=== PATIENT | female | born 1965 | race African-American/Black ===

== ENCOUNTER 2019-07-26 16:41 | Emergency (ER) | payer BC ==
[~2019-07-26] VITALS: Ht 167.6 cm; Wt 78.0 kg
[2019-07-26] MEDS ORDERED: Metoclopramide 10mg/2ml Inj IVP ONE (16:45)
[2019-07-26] MEDS ORDERED: DiphenhydrAMINE 50mg/ml Inj IVP ONE (16:45)
[2019-07-26] MEDS ORDERED: LORazepam Inj 2mg/ml 1ml IV ONE (16:45)
--- NOTE | 2019-07-26 16:45 | NUR ---
ED Nurse Note: Pt was brought in by ambulance from home d/t vertigo spells for 3-4 days. Pt is AOx4, calm and cooperative noted with generalized body weakness. Per EMS pt was recently diagnosed with Vertigo 6-7 months ago. Pt also noted with (+) vomiting. Placed on bed, safety measures in placed. VSS, on RA, afebrile on triage. Will continue to monitor.
--- NOTE | 2019-07-26 16:46 | Emergency Room Report ---
History of Present Illness General Chief Complaint: Dizziness Source: Patient Present Illness HPI Patient presents with 3 days of vertigo. It is worsened today and she has vomiting. She denies any headache. She has had this problem before but has no medication at this time. The patient denies any headache at this time. She also denies neck stiffness, ringing in the ears or change in her hearing. She is vomiting liquids at this time and having difficulty keeping them down. She feels weak and dehydrated. She denies abdominal pain. No fevers, chills, sore throat, chest pain, palpitations, diarrhea, dysuria, abdominal pain, shortness of breath, joint pain, rashes, depression, anxiety. Denies DM, HTN or fam hx of aneurisms. Allergies: Coded Allergies: No Known Allergies (Unverified , 07/26/19) COVID-19 Screening Contact w/high risk pt: No Recent Travel to affected area: No Experienced COVID-19 symptoms?: No COVID-19 Testing performed GAS STATION SUPERVISOR: No Patient History Past Medical History: see triage record Social History: Denies: smoking Social History Narrative lives with her Last Menstrual Period: na Reviewed Nursing Documentation: PMH: Agreed; PSxH: Agreed Nursing Documentation-PMH Past Medical History: No Stated History Review of Systems All Other Systems: negative except mentioned in HPI Physical Exam Vital Signs Date Time Temp Pulse Resp B/P (MAP) Pulse Ox O2 Delivery O2 Flow Rate FiO2 07/26/19 16:39 97.9 78 18 143/98 (113) 98 Room Air Sp02 EP Interpretation: reviewed, normal General Appearance: well appearing, no apparent distress, GCS 15 - but keeps eyes closed due to dizziness (opens spontaneously), non-toxic Head: normocephalic, atraumatic Eyes: bilateral eye PERRL, bilateral eye abnormal EOM - nystagmus with slow right and fast left ENT: TMs + canals normal, moist mucus membranes Neck: full range of motion, supple, supple/symm/no masses Respiratory: lungs clear, normal breath sounds Cardiovascular #1: regular rate, rhythm Cardiovascular #2: 2+ radial (R) Gastrointestinal: normal inspection, normal bowel sounds, non tender, no mass, non-distended Musculoskeletal: back normal, normal range of motion Neurologic: alert, motor strength/tone normal, DTRs symmetric, oriented x3, sensory intact, nystagmus, other - ataxia Psychiatric: depressed affect Skin: no rash, warm/dry Medical Decision Making Diagnostic Impression: Primary Impression: Nystagmus Additional Impressions: Sinusitis Qualified Codes: J32.3 - Chronic sphenoidal sinusitis Nausea and vomiting Qualified Codes: R11.2 - Nausea with vomiting, unspecified ER Course Patient with history of vertigo presents with increased vertigo and vomiting. Differential includes labyrinthitis, Mnire's disease, vestibular neuritis amongst others. Evaluation with labs EKG and chest x-ray. Patient placed on assistant corporate controller. Patient treated with metoclopramide, Benadryl and Ativan. Labs unremarkable. Patient still with significant nystagmus. Due to this CT will be ordered of the head as she states that has been done in the past. She does feel somewhat better. Try oral fluids at this time. Given Zofran and Antivert. Patient unable to ambulate with continued nystagmus. Tolerating oral intake. CT neg, but concern for subacute process. Admit telemetry. Discussed with Dr. Vaughn. Patient stable for transfer to [facility]. Aspirin given for possible cerebellar ischemia. Laboratory Tests Test 07/26/19 16:45 07/26/19 17:05 White Blood Count 14.5 K/UL (4.8-10.8) H Red Blood Count 4.61 M/UL (4.20-5.40) Hemoglobin 13.8 G/DL (12.0-16.0) Hematocrit 42.7 % (37.0-47.0) Mean Corpuscular Volume 93 FL (80-99) Mean Corpuscular Hemoglobin 29.9 PG (27.0-31.0) Mean Corpuscular Hemoglobin Concent 32.3 G/DL (32.0-36.0) Red Cell Distribution Width 12.1 % (11.6-14.8) Platelet Count 200 K/UL (150-450) Mean Platelet Volume 8.2 FL (6.5-10.1) Neutrophils (%) (Auto) 91.6 % (45.0-75.0) H Lymphocytes (%) (Auto) 4.6 % (20.0-45.0) L Monocytes (%) (Auto) 3.2 % (1.0-10.0) Eosinophils (%) (Auto) 0.0 % (0.0-3.0) Basophils (%) (Auto) 0.6 % (0.0-2.0) Sodium Level 139 MMOL/L (136-145) Potassium Level 3.9 MMOL/L (3.5-5.1) Chloride Level 102 MMOL/L (98-107) Carbon Dioxide Level 24 MMOL/L (21-32) Anion Gap 13 mmol/L (5-15) Blood Urea Nitrogen 16 mg/dL (7-18) Creatinine 0.9 MG/DL (0.55-1.30) Estimated Glomerular Filtration Rate > 60 mL/min (>60) Glucose Level 148 MG/DL (74-106) H Calcium Level 9.5 MG/DL (8.5-10.1) Total Bilirubin 0.4 MG/DL (0.2-1.0) Aspartate Amino Transferase (AST) 17 U/L (15-37) Alanine Aminotransferase (ALT) 21 U/L (12-78) Alkaline Phosphatase 118 U/L (46-116) H Total Protein 8.1 G/DL (6.4-8.2) Albumin 4.1 G/DL (3.4-5.0) Globulin 4.0 g/dL Albumin/Globulin Ratio 1.0 (1.0-2.7) Urine Color Yellow Urine Appearance Slightly cloudy Urine pH 7 (4.5-8.0) Urine Specific [place] 1.015 (1.005-1.035) Urine Protein 2+ (NEGATIVE) H Urine Glucose (UA) Negative (NEGATIVE) Urine Ketones 1+ (NEGATIVE) H Urine Blood 2+ (NEGATIVE) H Urine Nitrite Negative (NEGATIVE) Urine Bilirubin Negative (NEGATIVE) Urine Urobilinogen Normal MG/DL (0.0-1.0) Urine Leukocyte Esterase Negative (NEGATIVE) Urine RBC 2-4 /HPF (0 - 2) H Urine WBC 5-10 /HPF (0 - 2) H Urine Squamous Epithelial Cells Moderate /LPF (NONE/OCC) H Urine Amorphous Sediment Moderate /LPF (NONE) H Urine Bacteria Moderate /HPF (NONE) H EKG Diagnostic Results Rate: normal Rhythm: NSR ST Segments: no acute changes Rhythm Strip Diag. Results EP Interpretation: yes Rhythm: NSR, no PVC's, no ectopy Chest X-Ray Diagnostic Results Chest X-Ray Diagnostic Results : Chest X-Ray Ordered: Yes # of Views/Limited/Complete: 1 View Indication: Other EP Interpretation: Yes Interpretation: no consolidation, no effusion, no pneumothorax Impression: No acute disease Electronically Signed by: Electronically signed by Suresh Santo MD CT/MRI/US Diagnostic Results CT/MRI/US Diagnostic Results : Imaging Test Ordered: head Impression IMPRESSION: 1. No acute intracranial abnormality. 2. Very mild left sphenoid sinus disease. Last Vital Signs Date Time Temp Pulse Resp B/P (MAP) Pulse Ox O2 Delivery O2 Flow Rate FiO2 07/27/19 01:00 98.6 76 15 140/87 100 Room Air Status: improved Disposition: SHORT-TERM HOSP Condition: Serious Suresh Santo MD Jul 26, 2019 16:46
[2019-07-26 17:02] LABS: HEMATOCRIT 42.7 % (37.0-47.0); HEMOGLOBIN 13.8 G/DL (12.0-16.0); MEAN CORPUSCULAR VOLUME 93 FL (80-99); PLATELET COUNT 200 K/UL (150-450); RED BLOOD COUNT 4.61 M/UL (4.20-5.40); RED CELL DISTRIBUTION WIDTH 12.1 % (11.6-14.8); WHITE BLOOD COUNT 14.5 K/UL (4.8-10.8)
--- NOTE | 2019-07-26 17:05 | NUR ---
ED Nurse Note: urine collected, sent to labs.
[2019-07-26 17:06] LABS: BASOPHILS % (AUTO) 0.6 % (0.0-2.0); LYMPHOCYTES % (AUTO) 4.6 % (20.0-45.0); MONOCYTES % (AUTO) 3.2 % (1.0-10.0); NEUTROPHILS % (AUTO) 91.6 % (45.0-75.0)
[2019-07-26 17:10] VITALS: BP 143/98
[2019-07-26 17:14] LABS: ANION GAP 13 mmol/L (5-15); BLOOD UREA NITROGEN 16 mg/dL (7-18); CALCIUM 9.5 MG/DL (8.5-10.1); CARBON DIOXIDE 24 MMOL/L (21-32); CHLORIDE 102 MMOL/L (98-107); CREATININE 0.9 MG/DL (0.55-1.30); POTASSIUM 3.9 MMOL/L (3.5-5.1); SODIUM 139 MMOL/L (136-145)
[2019-07-26 17:19] LABS: ALANINE AMINOTRANSFERASE 21 U/L (12-78); ALBUMIN 4.1 G/DL (3.4-5.0); ALKALINE PHOSPHATASE 118 U/L (46-116); ASPARTATE AMINO TRANSFERASE 17 U/L (15-37); BILIRUBIN,TOTAL 0.4 MG/DL (0.2-1.0)
[2019-07-26 17:26] LABS: APPEARANCE,URINE SLIGHTLY CLOUDY; BILIRUBIN, URINE NEGATIVE (NEGATIVE); COLOR,URINE YELLOW; GLUCOSE, URINE (UA) NEGATIVE (NEGATIVE); KETONES,URINE 1+ (NEGATIVE); LEUKOCYTE ESTERASE ,URINE NEGATIVE (NEGATIVE); NITRITE,URINE NEGATIVE (NEGATIVE); PH,URINE 7 (4.5-8.0); PROTEIN,URINE 2+ (NEGATIVE); UROBILINOGEN,URINE NORMAL MG/DL (0.0-1.0)
--- NOTE | 2019-07-26 17:43 | NUR ---
ED Nurse Note: x-ray on bedside.
--- NOTE | 2019-07-26 18:16 | Diagnostic Imaging Report ---
EXAM: XR Chest, 1 View CLINICAL HISTORY: DIZZY TECHNIQUE: Frontal view of the chest. COMPARISON: None available. FINDINGS: Lungs: Unremarkable. No consolidation. Pleural space: Unremarkable. No pneumothorax. Heart: Unremarkable. No cardiomegaly. Mediastinum: Unremarkable. Bones/joints: Unremarkable. IMPRESSION: No acute cardiopulmonary disease.
--- NOTE | 2019-07-26 18:44 | NUR ---
Patients daughter-Aniyah Lozada called , left her phone number [phone] if we need to contact her.
--- NOTE | 2019-07-26 19:09 | NUR ---
ED Nurse Note: hand off given to MARIA EUGENIA Servin for continuity of care.
--- NOTE | 2019-07-26 19:10 | NUR ---
ED Nurse Note: Report received from MARIA EUGENIA Dill. Pt is resting in bed, NAD.
[2019-07-26] MEDS ORDERED: Meclizine 25mg tab ORAL STA (19:15)
[2019-07-26 19:45] VITALS: BP_SYST 130; BP_SYST 143; BP_DIAS 85; BP_DIAS 98
--- NOTE | 2019-07-26 19:50 | NUR ---
ED Nurse Note: Pt taken to CT.
--- NOTE | 2019-07-26 20:44 | Diagnostic Imaging Report ---
EXAM: CT Head Without Intravenous Contrast CLINICAL HISTORY: DIZZY TECHNIQUE: Axial computed tomography images of the head/brain without intravenous contrast. CTDI is 53.4 mGy and DLP is 1018.8 mGy-cm. One or more of the following dose reduction techniques were used: automated exposure control, adjustment of the mA and/or kV according to patient size, use of iterative reconstruction technique. COMPARISON: None available. FINDINGS: Brain: Unremarkable. No hemorrhage. No significant white matter disease. No edema. Ventricles: Unremarkable. Incidental note of persistent cavum vergae. No ventriculomegaly. Bones/joints: Unremarkable. No acute fracture. Soft tissues: Unremarkable. Sinuses: Very mild left sphenoid sinus disease. Otherwise, unremarkable paranasal sinuses. Mastoid air cells: Unremarkable as visualized. No mastoid effusion. IMPRESSION: 1. No acute intracranial abnormality. 2. Very mild left sphenoid sinus disease.
--- NOTE | 2019-07-26 21:00 | NUR ---
ED Nurse Note: Pt can stand with assistance but is unable to ambulate with steady gait at this time. Nystagmus noted. ERMD aware.
--- NOTE | 2019-07-26 21:15 | NUR ---
ED Nurse Note: Pt assisted to bedside commode.
[2019-07-26 21:40] VITALS: BP 142/89
--- NOTE | 2019-07-26 21:40 | NUR ---
ED Nurse Note: Pt is resting in bed with safety measures in place. Vital signs are stable.
--- NOTE | 2019-07-26 22:25 | NUR ---
ED Nurse Note: Pt is aware of admission and transfer. Pt is resting in bed, NAD. Pt reports still feeling dizzy at this time.
[2019-07-26 22:30] VITALS: BP 149/91
--- NOTE | 2019-07-27 00:30 | NUR ---
ED Nurse Note: Report given to MARIA EUGENIA Franco at [facility].
[2019-07-27 01:00] VITALS: BP 140/87
--- NOTE | 2019-07-27 01:00 | NUR ---
ED Nurse Note: Pt is stable for transfer to [facility] at this time per ERMD. Pt is aaox4, breathing is normal and unlabored. No cough, SOB or fever noted. Pt being transported by [facility] ambulance ALS unit 25 via gurney. Pt belongings sent with pt. Pt transferred to [facility] without complication. Report given to ALS crew. Pt IV is patent and intact. Vital signs are stable at this time. NAD noted.
== END 2019-07-27 01:00 | disposition short-term general hospital (02) ==
LOC: EDBD 16:41 → EMR 17:49
DX: H55.00 Unspecified nystagmus (principal); J32.3 Chronic sphenoidal sinusitis; R11.2 Nausea with vomiting, unspecified
CPT/HCPCS: 36415; 70450; 71045; 80053; 81003; 85025; 87086; 93005; 96361; 96374; 96375; 99284; J1200; J2405; J2765; J7030